=== PATIENT | female | born 1995 | race Caucasian/White ===

== ENCOUNTER → 2018-04-26 | Day surgery (SDC) | payer OTHER ==
[~2018-04-26] VITALS: Ht 167.6 cm; Wt 55.0 kg
[~2018-04-26] MED LIST: BUPIVACAINE/EPINEPHRINE 0.5% PF 30 ML VIAL ONE; BUTA1CAP5 PO; CELE20TA PO; CHLORHEXIDINE GLUCONATE 0.12% 15 ML CUP OROPHARYNG ONE; CHLORHEXIDINE GLUCONATE 2 % 1 PACK (2 CLOTHS) TOPICAL PRN; FLUO20CA12 PO; HYDR-3799 PO; KETOROLAC TROMETHAMINE 30 MG/ML (IVP) VIAL ONE; LACTATED RINGER'S 1000 ML IV PRN; MEPERIDINE HCL 25 MG/ML VIAL ONE; MIDAZOLAM HCL 2 MG/2 ML VIAL ONE; MONT10TA4 PO; MORPHINE SULFATE 2 MG/ML SYRINGE ONE; POVIDONE IODINE 5% (ANTISEPSIS KIT) 4 APPLICATIONS EACH NARE PRN; SODIUM CHLORID 0.9% 500 ML IV PRN; TYLE325T PO; ceFAZolin 2 GM/DEX PREMIX 50 ML IV SCH
[2018-04-26 09:00] VITALS: PULSE 101
[2018-04-26 10:10] VITALS: BP 135/69; PULSE 98; RESP 16; TEMP 98.1; O2SAT 98
--- NOTE | 2018-04-28 15:53 | PD.OP ---
Operative Report Date of Surgery: Apr 26, 2018 Preoperative Diagnosis: (1) Mandible fracture Postoperative Diagnosis: (1) Mandible fracture Procedure: Removal of mandibular arch bars (55438) Surgeon: Keith Lemus Diabetic Educator(s): . Operation and Findings: 22-year-old female who presents status post mandibulomaxillary fixation using Leeroy arch bars. Risks benefits alternative treatments discussed. All questions answered and the patient expressed understanding. Patient elected to assume the risks of mandibular arch bar removal. Informed consent obtained. Patient was given antibiotics on-call to the operating room. The patient was taken to the operating room and all pressure points were padded. A surgical timeout was performed. After the smooth induction of anesthesia, the arch bars were removed uneventfully. All needle sponge and spent counts were correct 2. The patient arrived stable doing well to the PACU. Keith Lemus MD Apr 28, 2018 15:53
== END | disposition home or self-care (01) ==
LOC: PHSDC 06:07
PROVIDERS: ATTEND Student in an Organized Health Care Education/Training Program
DX: S02.620 Fracture of subcondylar process of mandible, unspecified side (principal)
CPT/HCPCS: 00190; 20670; J0690; J1885; J2175; J2250; J2270; J3010; J7120